=== PATIENT | male | born 1975 | race Caucasian/White ===

== ENCOUNTER 2024-01-11 12:28 | Emergency (ER) | payer OTHER, SELFPAY ==
[2024-01-11 12:32] VITALS: BP 153/99; BMI 25.8
--- NOTE | 2024-01-11 13:05 | ED.GENMED ---
History of Present Illness
General
Chief Complaint: Skin Problem
Source: patient
Time Seen by Provider: 01/11/24 12:54
History of Present Illness
History of Present Illness:
48yoM with no significant past medical history presenting for evaluation of a left ankle insect bite. He was fishing 5 days ago when he was bitten by an insect on the lateral aspect of his left ankle. He reports left ankle swelling and redness that
has been gradually worsening over the past few days. He denies any pain but states the ankle is uncomfortable due to the swelling. No fevers or chills. He is otherwise asymptomatic. He states he is here because his doctor is on vacation.
Phy Exam
Physical Exam
Physical Exam:
Left ankle: Erythema and warmth noted to the lateral aspect of the ankle with surrounding pitting edema in the dorsum of the foot. No drainage, fluctuance, or crepitus. No red streaking proximally. ROM of ankle intact. 2+ DP pulse.
General Physical Exam
General Presentation: well appearing and no apparent distress
General age: appears stated age
General Skin: warm and dry
General Habitus: normal
General Mental: alert
Skin Exam
Skin Exam: erythema
Course
Vital Signs
Initial and Last Documented VS:
Initial Vital Signs
Temp Pulse Resp BP Pulse Ox
98.5 F 67 18 153/99 98
01/11/24 12:32 01/11/24 12:32 01/11/24 12:32 01/11/24 12:32 01/11/24 12:32
Last Documented Vital Signs
Temp Pulse Resp BP Pulse Ox
98.5 F 67 18 153/99 98
01/11/24 12:32 01/11/24 12:32 01/11/24 12:32 01/11/24 12:32 01/11/24 12:32
MDM/Problems Addressed
Differential Diagnosis Includes:
48yoM presenting for an insect bite to the L ankle 5 days ago. C/o worsening swelling/redness. No f/c. He is afebrile and hemodynamically stable. He is well appearing in no distress. Erythema, warmth, and localized swelling on exam. Differential
diagnosis includes but is not limited to: local reaction to an insect bite, cellulitis, no evidence of abscess/NSTI
No indication for labs or imaging at this time. Will discharge with prednisone and Keflex to cover for infection. Advised f/u with PCP and ED return precautions discussed. Patient discharged in stable condition.
*Critical Care Note
Total Time (30-74mins, 75-104mins- exclusive of procedures): Not Applicable
ED Attending Note
-
Portions of this chart may have been created with voice recognition software.� Occasional wrong word or��sound alike� substitutions may have occurred due to the inherent limitations of voice recognition software.
Discharge Plan
Departure
Patient Disposition: Home (Routine Discharge)
Date of Disposition: 01/11/24
Time of Disposition: 13:08
Patient with high blood pressure during this ER visit?: Yes
Discharge Problem:
Insect bite of ankle with local reaction
Instructions: Insect bites and stings
Prescriptions:
New
cephalexin 500 mg capsule
500 mg PO Q6H Qty: 28 0RF
prednisone 50 mg tablet
50 mg PO DAILY Qty: 5 0RF
No Action
amoxicillin-pot clavulanate [Augmentin] 500-125 mg tablet
1 tab PO Q12H Qty: 14 0RF
acetaminophen [acetaminophen] 325 mg tablet
650 mg PO Q6HPRN PRN (Reason: mild pain) Qty: 14 0RF
ibuprofen 200 mg tablet
400 - 600 mg PO Q6HPRN PRN (Reason: moderate pain) Qty: 1 0RF
Activity Restrictions/Additional Instructions:
Take antibiotics and prednisone as prescribed. Elevate and compress your ankle to help with swelling.
Please follow-up with your family doctor in 3-4 days for recheck. Return to the ER with any worsening symptoms, spreading redness, fevers.
Interventions
Interventions:
*Risk Screen - Suicide Last Done: 01/11/24 12:32
*Neglect/Abuse Screening Last Done: 01/11/24 12:32
ED- Fall Risk Assessment Last Done: 01/11/24 13:06
*Nursing Disposition Last Done: 01/11/24 13:15
ED-Skin Assessment Last Done: 01/11/24 13:06
Discharge Date and Time
Print Language: IVORIAN
== END 2024-01-11 13:22 | disposition home or self-care (01) ==
LOC: EMR 12:28
PROVIDERS: EMERGENCY PHYSICIAN Emergency Medicine; FAMILY PHYSICIAN Internal Medicine
DX: S90.562A Insect bite (nonvenomous), left ankle, initial encounter (principal); W57.XXXA Bitten or stung by nonvenomous insect and other nonvenomous arthropods, initial encounter; R03.0 Elevated blood-pressure reading, without diagnosis of hypertension
CPT/HCPCS: 99283

== ENCOUNTER → 2024-02-29 13:57 | Outpatient (REF) | payer OTHER, SELFPAY | LOC: HWEVLT 13:57 | PROVIDERS: ATTENDING PHYSICIAN Radiology Vascular & Interventional Radiology | DX: I83.893 Varicose veins of bilateral lower extremities with other complications (principal) | CPT/HCPCS: 93970 ==